=== PATIENT | female | born 1975 | race Caucasian/White ===

== ENCOUNTER 2019-04-10 10:57 | Emergency (ER) | payer OTHER ==
[2019-04-10 11:18] VITALS: BMI 34.9
[2019-04-10 13:21] LABS: BASO % 0.4 % (0-2.0); EOS % 1.8 % (0-4.5); HEMATOCRIT 36.5 % (32.4-45.2); HEMOGLOBIN 12.1 GM/dL (10.7-15.3); LYMPH % 24.9 % (8-40); MCH 27.3 pg (25.7-33.7); MCHC 33.3 g/dl (32.0-36.0); MEAN PLT VOLUME 7.2 fl (7.5-11.1); MONO % 10.8 % (3.8-10.2); NEUT % 62.1 % (42.8-82.8); PLATELET COUNT 261 K/MM3 (134-434); RBC 4.45 M/mm3 (3.60-5.2); RDW 14.1 % (11.6-15.6); WHITE BLOOD COUNT 4.3 K/mm3 (4.0-10.0)
--- NOTE | 2019-04-10 13:25 | PDOC ---
History of Present Illness <Raiza Naqvi - Last Filed: 04/10/19 16:26> - History of Present Illness Initial Comments: Ms. Pedersen is a 43 y/o female with PMH of herniated lumbar disc, migraines, and chronic headaches, presenting today with right arm and leg numbness, pain, and difficulty moving. Reports that she slept on the right side of her body and this morning felt numbness, tingling in her right hand and pain in her right arm. Also reports pain in her right hip that travels down the leg and pain on the sole of her right foot worse when standing. Reports that she has had similar discomforts before but that this is worse. <Shravan Estes - Last Filed: 04/10/19 16:47> - General Chief Complaint: Headache Stated Complaint: RT SIDE BODY PAIN/NUMBNESS Time Seen by Provider: 04/10/19 12:00 Past History <Raiza Naqvi - Last Filed: 04/10/19 16:26> - Past Medical History COPD: No - Surgical History Abdominal Surgery: Yes (ectopic) Cholecystectomy: Yes - Psycho Social/Smoking Cessation Hx Smoking History: Never smoked <Shravan Estes - Last Filed: 04/10/19 16:47> - Past Medical History Allergies/Adverse Reactions: Allergies Allergy/AdvReac Type Severity Reaction Status Date / Time No Known Allergies Allergy Verified 04/10/19 11:14 Home Medications: Ambulatory Orders Cyclobenzaprine HCl [Flexeril 10 mg] 10 mg PO TID PRN #15 tablet 04/10/19 Review of Systems - Review of Systems Comments:: GENERAL/CONSTITUTIONAL: No fever or chills. No weakness._ HEAD, EYES, EARS, NOSE AND THROAT: No change in vision. No change in hearing. No sore throat._ CARDIOVASCULAR: No chest pain or shortness of breath_ RESPIRATORY: Denies cough, hemoptysis_ GASTROINTESTINAL: No nausea, vomiting, diarrhea or constipation._ GENITOURINARY: No dysuria, frequency, or change in urination._ MUSCULOSKELETAL: Reports right hand tingling, right arm and right leg pain. No neck or back pain._ SKIN: No rash_ NEUROLOGIC: Reports mild chronic headache. Denies vertigo, loss of consciousness , or change in strength/sensation._ ENDOCRINE: No increased thirst. No abnormal weight change. ALLERGIC/IMMUNOLOGIC: No hives or skin allergy. <Shravan Estes - Last Filed: 04/10/19 16:47> *Physical Exam - Vital Signs Last Vital Signs Temp Pulse Resp BP Pulse Ox 98.2 F 79 20 149/91 99 04/10/19 11:16 04/10/19 11:16 04/10/19 11:16 04/10/19 11:16 04/10/19 11:16 <Raiza Naqvi - Last Filed: 04/10/19 16:26> - Vital Signs Last Vital Signs Temp Pulse Resp BP Pulse Ox 98.2 F 79 20 149/91 99 04/10/19 11:16 04/10/19 11:16 04/10/19 11:16 04/10/19 11:16 04/10/19 11:16 - Physical Exam Comments: GENERAL: Awake, alert, and oriented to person/place/time, in no acute distress_ HEAD: No signs of trauma, normocephalic, atraumatic _ EYES: PERRLA, EOMI, sclera anicteric, conjunctiva clear_ ENT: Hearing grossly normal, nares patent, oropharynx clear without exudates. No uvular deviation. Moist mucosa_ NECK: Normal ROM, supple, no lymphadenopathy, JVD, or masses_ LUNGS: No distress, speaks in full sentences, clear to auscultation bilaterally _ HEART: Regular rate and rhythm, normal S1 and S2, no murmurs appreciated, peripheral pulses normal and equal bilaterally._ ABDOMEN: Soft, nontender, normoactive bowel sounds. No guarding, no rebound. No masses_ EXTREMITIES: Normal inspection, Normal range of motion, no edema. No clubbing or cyanosis_ RUE: Inspection: No erythema or ecchymosis. No tenderness, no obvious abnormalities, no open wounds. Compartments soft and compressible, pain within proportion, no pain to passive stretch Sensation: sensation present to light touch m/r/u n Motor: intact AIN/PIN/Ulnar in hand; 5/5 Wrist flex/ext; 5/5 Elbow flex/ext; 5/ 5 Shoulder ABd,Flex Vascular: 2+ radial pulse palpated, BCR all fingers <2 sec. LUE: Inspection: No erythema or ecchymosis. No tenderness, no obvious abnormalities, no open wounds. Compartments soft and compressible, pain within proportion, no pain to passive stretch Sensation: sensation present to light touch m/r/u n Motor: intact AIN/PIN/Ulnar in hand; 5/5 Wrist flex/ext; 5/5 Elbow flex/ext; 5/ 5 Shoulder ABd,Flex Vascular: 2+ radial pulse palpated, BCR all fingers <2 sec. NEUROLOGICAL: Cranial nerves II through XII grossly intact. Normal speech, normal gait, no focal sensorimotor deficits. SKIN: Warm, Dry, normal turgor, no rashes or lesions noted_ <FranklynShravan - Last Filed: 04/10/19 16:47> Heart Score/ECG Review #1 ECG reviewed & interpreted by me at: 12:30 General ECG Interpretation: Sinus Rhythm, Normal Rate, Normal Intervals Compared to previous ECG there are: Previous ECG unavail 04/10/19 16:26 EKG normal sinus rhythm at 68 bpm, no interval abnormalities, narrow QRS, ST and T wave segments and morphology normal. Nonspecific T wave abnormalities noted, no comparisons, no chest pain or sob, or syncope. no elevations or depressions of ST segments <Raiza Naqvi - Last Filed: 04/10/19 16:26> ED Treatment Course - LABORATORY CBC & Chemistry Diagram: 04/10/19 13:12 04/10/19 13:12 - ADDITIONAL ORDERS Additional order review: Laboratory Results 04/10/19 04/10/19 04/10/19 13:12 13:12 13:12 Sodium 140 Potassium 3.5 Chloride 106 Carbon Dioxide 28 Anion Gap 6 L BUN 10.5 Creatinine 0.8 Est GFR (CKD-EPI)AfAm 105.39 Est GFR (CKD-EPI)NonAf 90.93 Random Glucose 79 Calcium 8.6 Total Bilirubin 0.6 AST 19 ALT 30 Alkaline Phosphatase 108 Creatine Kinase 73 Troponin I < 0.02 Total Protein 7.5 Albumin 3.6 Serum , Qual Negative 04/10/19 13:12 RBC 4.45 MCV 82.0 MCHC 33.3 RDW 14.1 MPV 7.2 L Neutrophils % 62.1 Lymphocytes % 24.9 Monocytes % 10.8 H Eosinophils % 1.8 Basophils % 0.4 - Medications Given in the ED: ED Medications Discontinued Medications Generic Name Dose Route Start Last Admin Trade Name Freq PRN Reason Stop Dose Admin Acetaminophen 650 mg 04/10/19 14:32 04/10/19 15:06 Tylenol - PO 04/10/19 14:33 650 mg ONCE ONE Administration Cyclobenzaprine HCl 5 mg 04/10/19 15:09 04/10/19 15:13 Flexeril - PO 04/10/19 15:10 5 mg ONCE ONE Administration Diphenhydramine HCl 25 mg 04/10/19 14:34 04/10/19 15:06 Benadryl Oral Solution - PO 04/10/19 14:35 25 mg ONCE ONE Administration Metoclopramide HCl 10 mg 04/10/19 14:34 04/10/19 15:06 Reglan Oral Solution - PO 04/10/19 14:35 10 mg ONCE ONE Administration <Raiza Naqvi - Last Filed: 04/10/19 16:26> - LABORATORY CBC & Chemistry Diagram: 04/10/19 13:12 04/10/19 13:12 - ADDITIONAL ORDERS Additional order review: 04/10/19 13:12 RBC 4.45 MCV 82.0 MCHC 33.3 RDW 14.1 MPV 7.2 L Neutrophils % 62.1 Lymphocytes % 24.9 Monocytes % 10.8 H Eosinophils % 1.8 Basophils % 0.4 <Shravan Estes - Last Filed: 04/10/19 16:47> Medical Decision Making - Medical Decision Making 43F with hx of chronic headaches and migraines, presenting with right upper and lower extremity pain. Neurovascularly intact with no focal neurological deficits. -CBC, CMP, trop, serum preg -CXR, EKG -XR right hip, XR left hip, 04/10/19 1300 EKG shows NSR, 68 bpm, no ST elevation/depression, no axis deviation, QTc 433. 04/10/19 1400 Labs reviewed and wnl. 04/10/19 15:10 CT head shows no acute intracranial pathology. CT neck shows no evidence of c-spine injury. Reversal of normal cervical spine lordosis which could be positional or due to muscular spasm. Right C5-C6 foraminal disc osteophyte complex formation narrowing the neural foramina. 04/10/19 1530 Patient reassessed. Pain has improved after Tylenol, Flexeril, Benadryl, Reglan. Plan to d/c home with PCP and neurosurgery follow up. <Shravan Estes - Last Filed: 04/10/19 16:47> Discharge - Discharge Information Problems reviewed: Yes - Admission No <Raiza Naqvi - Last Filed: 04/10/19 16:26> <Shravan Estes - Last Filed: 04/10/19 16:47> - Discharge Information Clinical Impression/Diagnosis: Paresthesia, Arm pain, right Condition: Good Disposition: HOME - Additional Discharge Information Prescriptions: Cyclobenzaprine HCl [Flexeril 10 mg] 10 mg PO TID PRN #15 tablet PRN Reason: Muscle Spasms - Follow up/Referral Referrals: Geovanny Vallejo MD, [facility] [Staff Physician] - Waqar Francisco MD [Staff Physician] - - Patient Discharge Instructions Patient Printed Discharge Instructions: DI for Cervical Radiculopathy, DI for Arm Pain, DI for Numbness/tingling - Post Discharge Activity Work/Back to School Note: Back to Work
--- NOTE | 2019-04-10 13:40 | PDOC ---
Attending Attestation - Resident Resident Name: FranklynShravan - ED Attending Attestation I have performed the following: I have examined & evaluated the patient, The case was reviewed & discussed with the resident, I agree w/resident's findings & plan - HPI HPI: 04/10/19 14:30 43 YOF herniated lumbar disc, migraines, and chronic headaches p/w rt arm and leg numbness/pain, difficulty moving 2/2 leyva. rt upper arm numbness, radiating down to hands and fingertips, beginning since this morning. Denies any precipitating trauma or strenuous activity but woke up from sleep with symptoms and attributes mostly and likely due to her sleeping position 2 days of headache. Also reports pain in her right hip that travels down the leg and pain on the sole of her right foot worse when standing. 04/10/19 14:31 04/10/19 15:27 - Physicial Exam PE: 04/10/19 13:40 Agree with the resident's HPI and PE as documented in the electronic medical record. NAD, well appearing, EOMI, PERRL, nl conjunctiva, anicteric; neck supple.no midline c spine tenderness, no neck or upper back tenderness. FROM at the neck and b/l shoulder. lungs clear, RRR, abdomen soft nontender. no rebound, guarding. Back nontender. HINES x4, no focal neuro deficits on my exam. No peripheral edema. normal color for ethnicity, WWP. Upper Extremity exam (focused): shoulder abduction/adduction/flexion/extension and prox strength 5/5 actively against resistance. 5/5 shoulder shrug strength. deltoid sensation intact; sensation grossly intact in median/radial/ulnar distribution. 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 2+ radialis pulses bilaterally and symmetric. 04/10/19 15:28 - Medical Decision Making 04/10/19 13:40 Vital Signs Temp Pulse Resp BP Pulse Ox 98.2 F 79 20 149/91 99 04/10/19 11:16 04/10/19 11:16 04/10/19 11:16 04/10/19 11:16 04/10/19 11:16 ddx. radiculopathy, cervicalgia. paresthesias, neuropathy. C spine injury, CAR GREASER mass/lesion migraine, tension, cluster headache labs and lytes normal. neg preg test. CT imaging to eval for bony abnormalities, CAR GREASER mass/lesion xray hips neg for acute pathology, pelvic phleboliths. analgesia reassess. 04/10/19 15:07 CT negative for any intracranial mass lesion or bleed. CT negative for any traumatic cervical spine injury. There is reversal of the normal cervical spine lordosis which could be positionally related related to the muscular spasm which patient does have. Right C5-C6 foraminal disc osteophyte complex formation and narrowing of the neural foramina 04/10/19 15:29 -She is feeling much improved after appropriate analgesia Patient was given Tylenol, Flexeril, Benadryl and Reglan to treat her pain as well as the headache, similar to her migraine Pt to be discharged in stable condition. Patient made aware of clinical impression, treatment recommendations and disposition plan, return precautions discussed (including but not limited to new or persistent/worsening symptoms, pain, fevers, or signs of infection, chest pain, respiratory distress, inability to tolerate oral intake, dehydration, syncope, or neurologic changes) . Follow up with PMD and/or NSG specialist as recommended, follow up information provided, take medications as instructed for duration of time. continue with supportive care, avoid triggers and precipitants. All questions answered to patient's satisfaction and expressed understanding and comfort with this. At the time of discharge, the patient is alert, clinically improved, tolerating po and verbalizes understanding of instructions, satisfied with the care received and felt comfortable with the plan. Patient does not suffer from an acute life-threatening medical condition at this time and is safe for outpatient follow-up. 04/10/19 15:31
[2019-04-10 13:56] LABS: ALBUMIN 3.6 g/dl (3.4-5.0); BILIRUBIN,TOTAL 0.6 mg/dL (0.2-1); BLOOD UREA NITROGEN 10.5 mg/dL (7-18); CALCIUM 8.6 mg/dL (8.5-10.1); CREATININE 0.8 mg/dL (0.55-1.3); POTASSIUM 3.5 mmol/L (3.5-5.1); TOT PROT 7.5 g/dl (6.4-8.2)
--- NOTE | 2019-04-10 14:14 | EKG ---
Test Reason : Blood Pressure : / mmHG Vent. Rate : 068 BPM Atrial Rate : 068 BPM P-R Int : 174 ms QRS Dur : 084 ms QT Int : 408 ms P-R-T Axes : 049 012 010 degrees QTc Int : 433 ms NORMAL SINUS RHYTHM NONSPECIFIC ST ABNORMALITY NO PREVIOUS ECGS AVAILABLE Confirmed by AYUSH RUBIN MD ([id number]) on 04/10/2019 2:14:13 PM Referred By: Confirmed By:AYUSH RUBIN MD
[2019-04-10] MEDS ORDERED: ACETAMINOPHEN 325 MG TABLET (FP) PO ONE (14:32)
[2019-04-10] MEDS ORDERED: diphenhydrAMINE HCL 12.5 MG/5 ML UNIT-DOSE CUPS PO ONE (14:34)
[2019-04-10] MEDS ORDERED: METOCLOPRAMIDE HCL 5 MG/5 ML UNIT DOSE CUP PO ONE (14:34)
[2019-04-10] MEDS ORDERED: diphenhydrAMINE HCL 25 MG CAPSULE (FP) PO ONE (14:54)
[2019-04-10] MEDS ORDERED: ACETAMINOPHEN 325 MG TABLET (FP) ONE (14:54)
[2019-04-10] MEDS ORDERED: METOCLOPRAMIDE HCL 10 MG TABLET (FP) PO ONE (14:55)
[2019-04-10] MEDS ORDERED: CYCLOBENZAPRINE HCL 10 MG TABLET (FP) PO ONE (15:09)
[2019-04-10] MEDS ORDERED: CYCLOBENZAPRINE HCL 10 MG TABLET (FP) ONE (15:49)
[2019-04-10 16:07] VITALS: BP 126/80; PULSE 69; TEMP 98.3
== END 2019-04-10 15:59 | disposition home or self-care (01) ==
LOC: JER 10:57
DX: M79.601 Pain in right arm (principal); R20.2 Paresthesia of skin; M51.9 Unspecified thoracic, thoracolumbar and lumbosacral intervertebral disc disorder; G89.29 Other chronic pain
CPT/HCPCS: 36415; 70450-TC; 72125-TC; 73523-TC-FY; 80053; 82550; 84484; 84703; 85025; 93005; 93010; 99283-25

== ENCOUNTER 2019-12-31 12:23 | Emergency (ER) | payer OTHER ==
--- NOTE | 2019-12-31 12:36 | PDOC ---
Rapid Medical Evaluation Time Seen by Provider: 12/31/19 12:31 Medical Evaluation: Allergies Allergy/AdvReac Type Severity Reaction Status Date / Time No Known Allergies Allergy Verified 04/10/19 11:14 12/31/19 12:36 44 year old female pmhx HTN complaining of fall yesterday with pain to right arm shoulder and neck. Denies head trauma or LOC. States cannot lift arm and tingling down to hand. PE: TTP to anterior shoulder unable to AROM or PROM TTP to cervical paravertebrals no midline tenderness Plan XRs Toradol Flexeril Pt to precede to ED for further treatment and care
[2019-12-31] MEDS ORDERED: KETOROLAC TROMETHAMINE 30 MG/1 ML VIAL IM ONE (12:41)
[2019-12-31] MEDS ORDERED: CYCLOBENZAPRINE HCL 10 MG TABLET (FP) PO ONE (12:42)
[2019-12-31] MEDS ORDERED: METHOCARBAMOL 500 MG TABLET PO ONE (12:44)
[2019-12-31] MEDS ORDERED: KETOROLAC TROMETHAMINE 60 MG/2 ML VIAL IM ONE (12:45)
[2019-12-31 12:51] VITALS: BP 141/94; PULSE 100; TEMP 99.2; BMI 36.0
--- NOTE | 2019-12-31 12:58 | PDOC ---
History of Present Illness - General Chief Complaint: Pain Stated Complaint: FALL Time Seen by Provider: 12/31/19 12:31 History Source: Patient Exam Limitations: Clinical Condition - History of Present Illness Initial Comments: 12/31/19 12:55 Patient with past medical history of right rotator cuff injury 4 years ago which was managed with physical therapy presented with complaint of severe right shoulder pain which she believed she might have rotator cuff tear status post slip and fall on his child's toy yesterday to right anterior shoulder. Denies hitting head or loss of consciousness. Report unable to lift right arm up due to worsening pain. Also reported mild tenderness to posterior aspect of right side of neck. Denies dizziness, blurry vision, change in vision, nausea, vomiting. Patient report taking Motrin earlier this morning for pain with minimal improvement. Denies any other symptoms Occurred: reports: just prior to arrival Past History - Medical History Allergies/Adverse Reactions: Allergies Allergy/AdvReac Type Severity Reaction Status Date / Time No Known Allergies Allergy Verified 12/31/19 12:44 Home Medications: Ambulatory Orders Cyclobenzaprine HCl [Flexeril 10 mg] 10 mg PO TID PRN #15 tablet 04/10/19 Methocarbamol [Robaxin -] 750 mg PO BID PRN #20 tablet 12/31/19 Naproxen 500 mg PO BID PRN #20 tablet 12/31/19 Oxycodone HCl/Acetaminophen [Percocet 5-325 mg Tablet] 1 tab PO Q6H PRN 5 Days #10 tablet MDD 3 12/31/19 COPD: No HTN: Yes - Surgical History Abdominal Surgery: Yes (ectopic) Cholecystectomy: Yes - Psycho-Social/Smoking History Smoking History: Never smoked Review of Systems - Review of Systems Able to Perform ROS?: Yes Is the patient limited [place] proficient: No Constitutional: No: Chills, Fever, Malaise HEENTM: No: Symptoms Reported, See HPI, Eye Pain, Blurred Vision, Tearing, Recent change in vision, Double Vision, Cataracts, Ear Pain, Ocular Prothesis, Ear Discharge, Nose Pain, Nose Congestion, Tinnitus, Nose Bleeding, Hearing Loss, Throat Pain, Throat Swelling, Mouth Pain, Dental Problems, Difficulty Swallowing, Mouth Swelling, Other Respiratory: No: Symptoms reported, See HPI, Cough, Orthopnea, Shortness of Breath, SOB with Exertion, SOB at Rest, Stridor, Wheezing, Productive cough, Hemoptysis, Other Cardiac (ROS): No: Symptoms Reported, See HPI, Chest Pain, Edema, Irregular Heart Rate, Lightheadedness, Palpitations, Syncope, Chest Tightness, Other ABD/GI: No: Symptoms Reported, Nausea, Vomiting Musculoskeletal: Yes: Symptoms Reported, See HPI, Joint Pain (right shoulder), Muscle Pain (right shoulder), Neck Pain (right side of neck pain). No: Back Pain Integumentary: No: Symptoms Reported Neurological: No: Symptoms reported, Headache, Numbness, Paresthesia, Tingling, Weakness All Other Systems: Reviewed and Negative *Physical Exam - Vital Signs Last Vital Signs Temp Pulse Resp BP Pulse Ox 99.2 F 100 H 18 141/94 100 12/31/19 12:33 12/31/19 12:33 12/31/19 12:33 12/31/19 12:33 12/31/19 12:33 - Physical Exam 12/31/19 13:01 GENERAL: Well developed, well nourished. Awake and alert in moderate acute distress. CARDIOVASCULAR: Regular rate and rhythm. No murmurs, rubs, or gallops. PULMONARY: No evidence of respiratory distress. Lungs clear to auscultation bilaterally. No wheezing, rales or rhonchi. ABDOMINAL: Soft. Non-tender. Non-distended. No rebound or guarding. No organomegaly. Normoactive bowel sounds MUSCULOSKELETAL : Moderate tenderness to right deltoid muscle over the medial deltoid and AC joint of right shoulder with increased tenderness with elevation of right upper arm. Negative arm drop. No visible deformity to shoulder. Mild tenderness to right paracervical muscle of C2-C7 with no midline tenderness. SKIN: Warm and dry. Normal capillary refill. No bruising or ecchymosis NEUROLOGICAL: Alert, awake, appropriate. No motor deficits in the lower extremities. Gait is normal without ataxia. PSYCHIATRIC: Cooperative. Good eye contact. Appropriate mood and affect. General Appearance: Yes: Nourished, Appropriately Dressed, Apparent Distress, Moderate Distress ED Treatment Course - RADIOLOGY Radiology Studies Ordered: Category Date Time Status SHOULDER-RIGHT [RAD] Stat Radiology 12/31/19 12:40 Ordered Medical Decision Making - Medical Decision Making 12/31/19 12:56 Patient with past medical history of right rotator cuff injury 4 years ago which was managed with physical therapy presented with complaint of severe right shoulder pain which she believed she might have rotator cuff tear status post slip and fall on his child's toy yesterday to right anterior shoulder. Denies hitting head or loss of consciousness. Report unable to lift right arm up due to worsening pain. Also reported mild tenderness to posterior aspect of right side of neck. Denies dizziness, blurry vision, change in vision, nausea, vomiting. Patient report taking Motrin earlier this morning for pain with minimal improvement. Denies any other symptoms Exam significant for moderate tenderness to anterior aspect of right shoulder over medial deltoid muscle and AC joint of right shoulder. Increased tenderness with elevation of right arm or abduction of right upper extremity. No visible deformity to right shoulder. Mild tenderness to right para cervical muscle of C2-C7. No midline tenderness. Full range of motion of cervical spine. Patient in moderate distress from right shoulder pain 12/31/19 12:59 X-ray of right shoulder, elbow and cervical spine ordered to rule out acute fracture or dislocation. Toradol 60 mg IM ordered for pain Robaxin thousand milligrams p.o. ordered for spasm. Treat based on imaging results 12/31/19 14:36 X-ray of right shoulder, cervical spine and elbow shows no acute fracture or dislocation. X-ray shows spasm of the cervical spine. Patient symptoms likely shoulder sprain with neck spasm. Patient stable for discharge on naproxen as needed for pain and Percocet for severe pain as needed and Robaxin for spasm with orthopedics follow-up. Patient given sling to help support right shoulder and advised to use not more than 3 days. Patient left department without complication Discharge - Discharge Information Problems reviewed: Yes Clinical Impression/Diagnosis: Arm pain, right, Muscle spasms of neck Fall Qualifiers: Encounter type: initial encounter Qualified Code(s): W19.XXXA - Unspecified fall, initial encounter Injury of right shoulder Qualifiers: Encounter type: initial encounter Qualified Code(s): S49.91XA - Unspecified injury of right shoulder and upper arm, initial encounter Condition: Stable Disposition: HOME - Admission No - Additional Discharge Information Prescriptions: Naproxen 500 mg PO BID PRN #20 tablet PRN Reason: pain Oxycodone HCl/Acetaminophen [Percocet 5-325 mg Tablet] 1 tab PO Q6H PRN 5 Days #10 tablet MDD 3 PRN Reason: severe shoulder pain Methocarbamol [Robaxin -] 750 mg PO BID PRN #20 tablet PRN Reason: shoulder pain - Follow up/Referral Referrals: Arthur Jordan DO [Staff Physician] - - Patient Discharge Instructions Patient Printed Discharge Instructions: DI for Shoulder Sprain Additional Instructions: X-ray of your shoulder shows no acute fracture or dislocation. Your symptoms likely from shoulder sprain however rotator cuff injury would not show on x-ray and you might need MRI to evaluate rotator cuff injury. Take prescribed medication as prescribed for shoulder pain. Follow-up referred with referred orthopedics as soon as possible for reevaluation for possible MRI of shoulder - Post Discharge Activity
[2019-12-31] MEDS ORDERED: METHOCARBAMOL 500 MG TABLET ONE (13:01)
[2019-12-31] MEDS ORDERED: KETOROLAC TROMETHAMINE 60 MG/2 ML VIAL ONE (13:01)
== END 2019-12-31 14:25 | disposition home or self-care (01) ==
LOC: JER 12:23 → JERFT 12:23
PROC: 3E0233Z Introduction of Anti-inflammatory into Muscle, Percutaneous Approach (ICD-10-PCS; principal; 2019-12-31)
PROC: 3E0233Z Introduction of Anti-inflammatory into Muscle, Percutaneous Approach (ICD-10-PCS; 2019-12-31)
DX: S49.91XA Unspecified injury of right shoulder and upper arm, initial encounter (principal); W19.XXXA Unspecified fall, initial encounter
CPT/HCPCS: 72040-TC; 73030-TC-RT-FY; 73070-TC-RT-FY; 99285-25

== ENCOUNTER 2021-08-15 09:55 | Emergency (ER) | payer OTHER ==
[2021-08-15 10:08] VITALS: BP 118/70; PULSE 93; TEMP 98.6; BMI 37.3
[2021-08-15] MEDS ORDERED: SODIUM CHLORIDE 0.9% 500 ML INFUS.BAG IV ONE (11:33)
[2021-08-15] MEDS ORDERED: ONDANSETRON 4 MG/2 ML VIAL IVPUSH ONE (11:33)
[2021-08-15] MEDS ORDERED: KETOROLAC TROMETHAMINE 30 MG/1 ML VIAL IVPB ONE ×2 (11:33→14:13)
[2021-08-15] MEDS ORDERED: KETOROLAC TROMETHAMINE 30 MG/1 ML VIAL ONE ×2 (11:40→15:00)
[2021-08-15] MEDS ORDERED: ONDANSETRON 4 MG/2 ML VIAL ONE (11:40)
[2021-08-15 12:19] LABS: BASO % 0.8 % (0-2.0); EOS % 6.3 % (0-4.5); HEMATOCRIT 36.9 % (32.4-45.2); HEMOGLOBIN 12.3 GM/dL (10.7-15.3); LYMPH % 32.5 % (8-40); MCHC 33.3 g/dl (32.0-36.0); MEAN CELL VOLUME 81.1 fl (80-96); MEAN PLT VOLUME 7.3 fl (7.5-11.1); MONO % 6.5 % (3.8-10.2); NEUT % 53.9 % (42.8-82.8); PLATELET COUNT 363 10^3/uL (134-434); RBC 4.54 M/mm3 (3.60-5.2); RDW 15.4 % (11.6-15.6); WHITE BLOOD COUNT 5.1 K/mm3 (4.0-10.0)
[2021-08-15 12:41] LABS: BLOOD UREA NITROGEN 10.3 mg/dL (7-18); CALCIUM 9.1 mg/dL (8.5-10.1)
[2021-08-15 12:42] LABS: ALBUMIN 3.7 g/dl (3.4-5.0)
[2021-08-15 12:45] LABS: CREATININE 0.8 mg/dL (0.55-1.3)
[2021-08-15 12:46] LABS: BILIRUBIN,TOTAL 0.6 mg/dL (0.2-1); TOT PROT 7.9 g/dl (6.4-8.2)
[2021-08-15 13:38] LABS: EPI CELLS >36 /uL (0-25.1); HYALINE CASTS 3 /uL (0-3.1); PH,URINE 5.5 (5.0-8.0); URINE APPEARANCE CLOUDY; URINE BACTERIA 2076 /uL (0-1359); URINE BILIRUBIN NEGATIVE (NEGATIVE); URINE COLOR YELLOW; URINE GLUCOSE (UA) NEGATIVE (NEGATIVE); URINE KETONE NEGATIVE (NEGATIVE); URINE LEUK ESTERASE 3+ (NEGATIVE); URINE NITRITE NEGATIVE (NEGATIVE); URINE PROTEIN NEGATIVE (NEGATIVE); URINE RBC 12 /uL (0-23.9); URINE UROBILINOGEN 0.2 mg/dL (0.2-1.0); URINE WBC 552 /uL (0-25.8)
[2021-08-15] MEDS ORDERED: LIDOCAINE 5% TOPICAL PATCH TP ONE (14:14)
[2021-08-15] MEDS ORDERED: CYCLOBENZAPRINE HCL 10 MG TABLET (FP) PO ONE (14:14)
[2021-08-15] MEDS ORDERED: LIDOCAINE 5% TOPICAL PATCH ONE (14:59)
[2021-08-15] MEDS ORDERED: CYCLOBENZAPRINE HCL 10 MG TABLET (FP) ONE (15:00)
[2021-08-15] MEDS ORDERED: LIDOCAINE PATCH REMOVAL MC ONE (22:00)
== END 2021-08-15 16:01 | disposition home or self-care (01) ==
LOC: JER 09:55
PROC: 3E0333Z Introduction of Anti-inflammatory into Peripheral Vein, Percutaneous Approach (ICD-10-PCS; principal; 2021-08-15)
PROC: 3E0333Z Introduction of Anti-inflammatory into Peripheral Vein, Percutaneous Approach (ICD-10-PCS; 2021-08-15)
PROC: 3E033GC Introduction of Other Therapeutic Substance into Peripheral Vein, Percutaneous Approach (ICD-10-PCS; 2021-08-15)
DX: N30.00 Acute cystitis without hematuria (principal)
CPT/HCPCS: 36415; 74176-TC; 80053; 81003; 85025; 87086; 99284-25

== ENCOUNTER 2024-01-09 09:23 | Emergency (ER) | payer OTHER ==
[2024-01-09 09:47] VITALS: TEMP 99.6; BMI 23.9
[2024-01-09] MEDS: SODIUM CHLORIDE 1,000 ML IV STA (10:57)
[2024-01-09] MEDS: morphine CARPU-JECT 2 MG/1 ML DISP.SYRIN IVPUSH ONE ×2 (11:01→14:19)
[2024-01-09] MEDS ORDERED: METOCLOPRAMIDE HCL INJECTION 10 MG/2 ML VIAL ONE (11:01)
[2024-01-09] MEDS ORDERED: MORPHINE SULFATE 2 MG/ML SYRINGE ONE ×2 (11:01→14:16)
[2024-01-09 11:02] LABS: BASO % 0.3 % (0-2.0); EOS % 0.3 % (0-4.5); HEMATOCRIT 28.3 % (32.4-45.2); HEMOGLOBIN 9.1 GM/dL (10.7-15.3); LYMPH % 10.8 % (8-40); MCH 22.6 pg (25.7-33.7); MCHC 32.2 g/dl (32.0-36.0); MEAN PLT VOLUME 6.8 fl (7.5-11.1); MONO % 9.9 % (3.8-10.2); NEUT % 78.7 % (42.8-82.8); PLATELET COUNT 322 10^3/uL (134-434); RBC 4.04 M/mm3 (3.60-5.2); RDW 17.3 % (11.6-15.6); WHITE BLOOD COUNT 6.9 K/mm3 (4.0-10.0)
[2024-01-09] MEDS: METOCLOPRAMIDE HCL INJECTION 10 MG/2 ML VIAL IVPUSH ONE (11:02)
[2024-01-09 11:06] LABS: EPI CELLS 2 /uL (0-25.1); HCG,QUALITATIVE URINE Negative; HYALINE CASTS 6 /uL (0-3.1); PH,URINE 6.5 (5.0-8.0); URINE APPEARANCE CLEAR; URINE BACTERIA 7279 /uL (0-1359); URINE BILIRUBIN NEGATIVE (NEGATIVE); URINE COLOR YELLOW; URINE GLUCOSE (UA) NEGATIVE (NEGATIVE); URINE KETONE NEGATIVE (NEGATIVE); URINE LEUK ESTERASE 3+ (NEGATIVE); URINE NITRITE NEGATIVE (NEGATIVE); URINE PROTEIN NEGATIVE (NEGATIVE); URINE RBC 56 /uL (0-23.9); URINE WBC 645 /uL (0-25.8)
[2024-01-09 11:20] LABS: POTASSIUM 3.6 mmol/L (3.5-5.1)
[2024-01-09 11:22] LABS: CALCIUM 8.8 mg/dL (8.5-10.1)
[2024-01-09 11:23] LABS: ALBUMIN 3.3 g/dl (3.4-5.0); BLOOD UREA NITROGEN 7.7 mg/dL (7-18)
[2024-01-09 11:26] LABS: CREATININE 0.7 mg/dL (0.55-1.3)
[2024-01-09 11:27] LABS: BILIRUBIN,TOTAL 0.7 mg/dL (0.2-1); TOT PROT 7.3 g/dl (6.4-8.2)
[2024-01-09 15:53] VITALS: BP 122/80; PULSE 90; RESP 20
== END 2024-01-09 15:54 | disposition home or self-care (01) ==
LOC: JER 09:23
DX: N12 Tubulo-interstitial nephritis, not specified as acute or chronic (principal); K56.1 Intussusception; R10.12 Left upper quadrant pain; M54.50 Low back pain, unspecified; R51.9 Headache, unspecified; M25.522 Pain in left elbow; R11.0 Nausea; R50.9 Fever, unspecified; Z20.822 Contact with and (suspected) exposure to COVID-19
CPT/HCPCS: 36415; 74177-TC; 80053; 81003; 83690; 84703; 85025; 86618; 87086; 87186; 87633; 99285-25; Q9967